=== PATIENT | male | born 1995 | race Caucasian/White ===

== ENCOUNTER → 2020-12-10 12:37 | Outpatient (CLI) | payer OTHER, SELFPAY ==
--- NOTE | ~2020-12-10 | XR_ITS ---
XR ankle RT min 3V DATE: 12/10/2020 12:53 INDICATION: Right ankle pain TECHNIQUE: 4 views COMPARISON: None FINDINGS: No recent fracture or dislocation of the ankle or disruption of the ankle mortise is detect ed. No periosteal reaction or bone destruction. No soft tissue swelling is noted. IMPRESSION: No recent fracture or dislocation or bone destruction Reviewed, dictated and finalized at location A.
== END ==
PROVIDERS: Visit Provider Chiropractor Rehabilitation
DX: M25.571 Pain in right ankle and joints of right foot (principal)
CPT/HCPCS: 73610

== ENCOUNTER → 2021-09-02 14:11 | Outpatient (CLI) | payer OTHER, SELFPAY ==
--- NOTE | ~2021-09-02 | XR_ITS ---
XR cervical spine min 6V INDICATION: Headaches. TECHNIQUE: 6 views of the cervical spine including flexion/extension views. FINDINGS: Automated exposure control and iterative reconstruction technique were employed. The cervical spine is visualized to the cervicothoracic junction. There is no prevertebral soft tiss ue swelling, listhesis, or loss of vertebral body height. Intervertebral disc spaces are normal. Th e osseous central canal is patent. No displaced cervical spine fractures are identified. IMPRESSION: 1. No significant osseous abnormality of the cervical spine. Reviewed, dictated and finalized at location A.
== END ==
PROVIDERS: PCP Nurse Practitioner Family; Visit Provider Chiropractor Rehabilitation
DX: M54.2 Cervicalgia (principal)
CPT/HCPCS: 72052